=== PATIENT | male | born 1955 | race African-American/Black ===

== ENCOUNTER 2017-04-24 10:57 | Inpatient (IN) | payer MEDICARE, OTHER ==
[~2017-04-24] VITALS: Ht 172.7 cm; Wt 57.6 kg
--- NOTE | 2017-04-24 11:27 | NUR ---
report given to Praveen LOPEZ for annalise
[2017-04-24 11:35] VITALS: BP 100/63
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
[2017-04-24] MEDS ORDERED: IV NS 0.9% 1,000 ML IV PRN (14:15)
[2017-04-24] MEDS ORDERED: MAG HYDROX/AL HYDROX/SIMETH 30 ML UDC PO PRN (14:30)
[2017-04-24] MEDS ORDERED: Z GUARD REMEDY 2 OZ OINT TP PRN (14:30)
[2017-04-24] MEDS ORDERED: ACETAMINOPHEN 325 MG TABLET PO PRN (14:30)
[2017-04-24] MEDS ORDERED: ONDANSETRON HCL/PF 4 MG/2 ML VIAL IVP PRN (14:30)
[2017-04-24] MEDS ORDERED: HYDROCODONE/APAP 5/325MG 1 EACH TABLET PO PRN (14:30)
[2017-04-24] MEDS ORDERED: MAGNESIUM HYDROXIDE 30 ML UDC PO PRN (14:30)
[2017-04-24 16:00] VITALS: BP 92/63
--- NOTE | 2017-04-24 19:18 | NUR ---
MS RN closing notes All needs met and rendered. Kept patient clean and dry. Call light within reach. Endorsed to next shift RN to continue care.
--- NOTE | 2017-04-24 19:30 | NUR ---
MS RN OPENING NOTES: PATIENT IN BED, ASLEEP BUT EASILY AWAKENED TO NAME, AOX1. APPEARS COMBATIVE, INITIALLY UNWILLING TO BE ASSESSED. ON ROOM AIR, BREATHING EVEN AND UNLABORED. PROVIDED FOR COMFORT AND SAFETY. BED IN LOWEST AND LOCKED POSITION, SIDERAILS UPX2, BED ALARMS ON. WILL CONT TO MONITOR.
[2017-04-24 20:00] VITALS: BP 98/62
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
--- NOTE | 2017-04-25 06:51 | NUR ---
MS RN CLOSING NOTES: PATIENT IN BED, AOX1, ON ROOM AIR, BREATHING EVEN AND UNLABORED. APPEARS CALM AND IN NO DISTRESS. DENIES PAIN. PROVIDED FOR COMFORT AND SAFETY. MORNING CARE RENDERED. BED IN LOWEST AND LOCKED POSITION, SIDERAILS UP X3, BED ALARMS ON. WILL ENDORSE TO AM RN FOR LEN.
[2017-04-25 06:59] LABS: BASOPHILS % (AUTO) 0.6 % (0.0-2.0); EOSINOPHILS # (AUTO) 0.1 /CMM (0.0-0.7); EOSINOPHILS % (AUTO) 3.5 % (0.0-6.0); HEMATOCRIT 37 % (39-51); HEMOGLOBIN 12.2 g/dL (13.5-17.5); LYMPHOCYTES # (AUTO) 1.4 /CMM (0.8-4.8); LYMPHOCYTES % (AUTO) 35.9 % (20.0-44.0); MEAN CORPUSCULAR HEMOGLOBIN 29 PG (26.0-33.0); MEAN CORPUSCULAR HGB CONC 33 g/dl (31.0-36.0); MEAN CORPUSCULAR VOLUME 88 fL (80-96); MONOCYTES # (AUTO) 0.4 /CMM (0.1-1.30); MONOCYTES % (AUTO) 9.9 % (2.0-12.0); NEUTROPHILS # (AUTO) 1.9 /CMM (1.8-8.9); NEUTROPHILS % (AUTO) 50.1 % (43.0-81.0); PLATELET COUNT (AUTO) 154 /CMM (150-450); RDW COEFFICIENT OF VARIATION 15.3 (11.5-15.0); RED BLOOD CELL COUNT(AUTO) 4.17 MIL/uL (4.5-6.0); WHITE BLOOD COUNT (AUTO) 3.8 K/uL (4.3-11.0)
[2017-04-25 07:05] LABS: APPEARANCE,URINE CLEAR (CLEAR); BILIRUBIN,URINE NEGATIVE (NEGATIVE); BLOOD, URINE NEGATIVE Ery/uL (NEGATIVE); COLOR,URINE YELLOW (YELLOW); KETONES,URINE NEGATIVE (NEGATIVE); LEUKOCYTE ESTERASE ,URINE NEGATIVE (NEGATIVE); NITRITE, URINE NEGATIVE (NEGATIVE); PROTEIN,URINE NEGATIVE (NEGATIVE); UGLUCOSE NEGATIVE (NEGATIVE); UROBILINOGEN,URINE 0.2 EU/dL (0.2)
[2017-04-25 07:36] LABS: BILIRUBIN,TOTAL 0.3 mg/dL (0.2-1.0); CALCIUM, SERUM 9.6 mg/dL (8.5-10.1); CREATININE 0.7 mg/dL (0.6-1.3); MAGNESIUM 1.7 mg/dL (1.8-2.4); PHOSPHORUS 3.3 mg/dL (2.5-4.9); POTASSIUM 4.2 mmol/L (3.5-5.1); TOTAL PROTEIN, SERUM 6.8 g/dL (6.4-8.2)
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
[2017-04-25 08:00] VITALS: BP 99/59
[2017-04-25] MEDS ORDERED: IV D5W 1,000 ML IV ONE (10:00)
[2017-04-25] MEDS: Magnesium 1GM/D5W 100ML PREMIX 100 ML IV SCH ×2 (10:27→11:33)
[2017-04-25] MEDS: IV NS 0.9% 1,000 ML IV PRN (10:50)
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
[2017-04-25] MEDS ORDERED: HYDROGEL DRESSING 90 GM TUBE TP PRN (11:00)
--- NOTE | 2017-04-25 11:00 | NUR ---
PER MD ORDER RO CANCEL ORDER OF D5 AND PL[address] NEW ORDER FOR NS.
[2017-04-25] MEDS ORDERED: MENTHOL/CETYLPYRD (CEPACOL) 1 LOZ LOZENGE PO PRN (12:00)
[2017-04-25] MEDS ORDERED: POLYVINYL ALCOHOL 15 ML BOTTLE EACHEYE PRN (12:00)
[2017-04-25] MEDS: HYDROGEL DRESSING 90 GM TUBE TP SCH (12:47)
[2017-04-25] MEDS ORDERED: BISACODYL SUPP (10 MG) 10 MG/SUPP.RECT SUPP.RECT RC PRN (15:00)
[2017-04-25] MEDS ORDERED: NITROGLYCERIN 0.4 MG/TAB BOTTLE SL PRN (15:00)
[2017-04-25] MEDS ORDERED: LORAZEPAM 1 MG TABLET PO PRN (15:00)
--- NOTE | 2017-04-25 15:30 | NUR ---
MED RECON DONE. NOTIFIED MD MAYS. AWAITING APPROVAL.
[2017-04-25] MEDS ORDERED: BISA10SU8 RC (15:32)
[2017-04-25] MEDS ORDERED: THIA100T74 PO (15:32)
[2017-04-25] MEDS ORDERED: HALO5TAB PO (15:32)
[2017-04-25] MEDS ORDERED: MULT-1018 PO (15:32)
[2017-04-25] MEDS ORDERED: HALO2TAB PO (15:32)
[2017-04-25] MEDS ORDERED: NITR0.4T6 SL (15:32)
[2017-04-25] MEDS ORDERED: LORA1TAB82 PO (15:32)
[2017-04-25] MEDS ORDERED: OMEP20CA10 PO (15:32)
[2017-04-25] MEDS ORDERED: CHOL200026 PO (15:32)
[2017-04-25] MEDS ORDERED: VALS80TA2 PO (15:32)
[2017-04-25] MEDS ORDERED: DOCU-25 PO (15:32)
[2017-04-25 16:00] VITALS: BP 97/61
[2017-04-25] MEDS ORDERED: DOCUSATE SODIUM 100 MG CAPSULE PO SCH (17:00)
--- NOTE | 2017-04-25 18:40 | NUR ---
MS RN: CLOSING NOTE PT TOOK ALL MEDICATIONS ON TIME. NO ADVERSE REACTIONS NOTED. NO PAIN NOTED. A/OX1-2. ON MS. INCONTINENT. USES DIAPER AND URINAL. BLE WOUNDS. WOUND CARE DONE BY WOUND CARE NURSE. ON CHOPPED DIET. IV ON R HAND #22 RUNNING NS AT 75ML/HR. SITE CLEAR AND PATENT. NO N/V NOTED. MED RECOND DONE. AWAITING APPROVAL FROM MD MAYS. NOTIFIED. FALL PRECAUTIONS IN PLACE. RESTING COMFORTABLY IN BED. CALL LIGHT WITHIN REACH.
--- NOTE | 2017-04-25 19:40 | NUR ---
MS RN INITIAL NOTES RECEIVED PT IN BED, AWAKE, RESPONSIVE,ON ROOM AIR,NO SOB,NO APPARENT DISTRESS NOTED.NO S/SX OF PAIN OR DISCOMFORT NOTED.KEPT CLEAN AND COMFORTABLE,ATTENDED ALL NEEDS.CALL LIGHT WITHIN REACH. WILL CONTINUE TO MONITOR ACCORDINGLY.
[2017-04-25 20:00] VITALS: BP 110/62
--- NOTE | 2017-04-25 21:00 | NUR ---
MS RN NOTES DR CORMIER NOTIFIED REGARDING MED RECON WAS DONE AWAITING FOR APPROVAL
[2017-04-25 22:00] VITALS: BP 110/62
[2017-04-25] MEDS ORDERED: HALOPERIDOL 5 MG TABLET PO SCH (22:00)
[2017-04-26] MEDS: ZOLPIDEM TARTRATE 5 MG TABLET PO PRN (01:03)
--- NOTE | 2017-04-26 01:24 | NUR ---
MS RN NOTES PT COMPLAINED OF INSOMNIA, AMBIEN GIVEN ORDERED. WILL CONTINUE TO MONITOR
[2017-04-26] MEDS: IV NS 0.9% 1,000 ML IV PRN (02:30)
--- NOTE | 2017-04-26 06:24 | NUR ---
MS RN CLOSING NOTES PT IN BED, AWAKE,ON ROOM AIR, NO SOB,NO APPARENT DISTRESS NOTED. DENIES ANY PAIN OR DISCOMFORT AT THIS TIME.IV SITE INTACT, PATENT. KEPT CLEAN AND COMFORTABLE. ATTENDED ALL NEEDS.CALL LIGHT WITHIN REACH
--- NOTE | 2017-04-26 07:35 | NUR ---
MS RN: INITIAL NOTE RECEIVED PT A/OX1-2. MS. NO DISTRESS NOTED. NO PAIN NOTED. NO SOB NOTED. INCONTINENT. USES DIAPER AND URINAL. ON MECHANICAL SOFT DIET. R HAND #22 RUNNING NS AT 75ML/HR. SITE CLEAR AND PATENT. NO REDNESS OR BLEEDING NOTED. RESTING COMFORTABLY IN BED. CALL LIGHT WITHIN REACH.
[2017-04-26 08:00] VITALS: BP 115/80
[2017-04-26] MEDS: HYDROGEL DRESSING 90 GM TUBE TP SCH (08:02)
[2017-04-26] MEDS ORDERED: MULTIVIT, IRON, MIN NO. 8, FA 1 TAB PO SCH (09:00)
[2017-04-26] MEDS ORDERED: CHOLECALCIFEROL (VITAMIN D 3) 400 UNIT TABLET PO SCH (09:00)
[2017-04-26] MEDS ORDERED: HALOPERIDOL 1 MG TABLET PO SCH (09:00)
[2017-04-26] MEDS ORDERED: HYDROGEL DRESSING 90 GM TUBE TP SCH (09:00)
[2017-04-26] MEDS ORDERED: THIAMINE HCL 100 MG TABLET PO SCH (09:00)
[2017-04-26] MEDS ORDERED: VALSARTAN 80 MG TABLET PO SCH (09:00)
--- NOTE | 2017-04-26 18:40 | NUR ---
MS RN: CLOSING NOTE PT A/OX4. MED RECON PLACED. MD MAYS NOTIFIED. AWAITING ORDERS. A/OX1. CONFUSED AT TIMES. MS. INCONTINENT. UNCOOPERATIVE AT TIMES. BRED REST. TURNED AND REPOSITIONED Q 2HOURS. NO DISTRESS NOTED. NO SOB NOTED. NO PAIN NOTED. IV ON R HAND RUNNING NS AT 75ML/HR. REFUSED LABS. ALL RISKS DN BENEFITS EXPLAINED. PT SCREAMED AT RN AND FEEDLOT MANAGER. RE-ATTEMPTED DURING THE DAY. PT REFUSED. NO N/V NOTED. CONSUMED ORAL INTAKE. RESTING COMFORTABLY IN BED. CALL LIGHT WITHIN REACH.
--- NOTE | 2017-04-26 19:25 | NUR ---
MS RN OPENING NOTES RECEIVED PT IN BED,AWAKE,ON ROOM AIR,NO SOB,NO APPARENT DISTRESS NOTED. IV SITE RT HAND INTACT,PATENT,NO S/SX OF INFILTRATION NOTED.KEPT CLEAN AND COMFORTABLE,CALL LIGHT WITHIN REACH,BED IN LOWEST POSITION.WILL CONTINUE TO MONITOR ACCORDINGLY.
[2017-04-26 20:00] VITALS: BP 116/73
[2017-04-26 21:43] VITALS: BP 116/73
[2017-04-27] MEDS: ZOLPIDEM TARTRATE 5 MG TABLET PO PRN (00:08)
--- NOTE | 2017-04-27 00:13 | NUR ---
MS RN NOTES NOTED WITH EPISODE OF INSOMNIA,AMBIEN GIVEN ORDERED. WILL CONTINUE TO MONITOR
[2017-04-27] MEDS: IV NS 0.9% 1,000 ML IV PRN (05:22)
--- NOTE | 2017-04-27 06:41 | NUR ---
MS RN CLOSING NOTES PT IN BED ASLEEP,ON ROOM AIR,NO SOB NOTED.RESPIRATIONS,EVEN, UNLABORED.IV SITE PATENT,NO S/SX OF INFILTRATION NOTED. KEPT CLEAN AND COMFORTABLE,CALL LIGHT WITHIN REACH.WILL CONTINUE TO MONITOR ACCORDINGLY
--- NOTE | 2017-04-27 07:15 | NUR ---
RN OPEN NOTES RECEIVED REPORT FROM BRICKMASON NURSE. PATIENT IS IN BED WITH HIS EYES CLOSED, EASILY AROUSED TO CALLING HIS NAME. NO SIGNS AND SYMPTOMS OF DISTRESS. WILL CONTINUE TO MONITOR AND ASSESS PATIENT.
[2017-04-27 08:00] VITALS: BP 104/56
[2017-04-27] MEDS: HYDROGEL DRESSING 90 GM TUBE TP SCH (08:19)
[2017-04-27] MEDS: FOLIC ACID 1 MG TABLET PO SCH (08:20)
[2017-04-27] MEDS ORDERED: LORAZEPAM 1 MG TABLET PO PRN (09:00)
[2017-04-27] MEDS ORDERED: BISACODYL SUPP (10 MG) 10 MG/SUPP.RECT SUPP.RECT RC PRN (09:00)
[2017-04-27] MEDS ORDERED: NITROGLYCERIN 0.4 MG/TAB BOTTLE SL PRN (09:00)
[2017-04-27] MEDS: CHOLECALCIFEROL 1,000 UNIT TABLET (VIT D3) PO SCH (09:49)
[2017-04-27] MEDS: DOCUSATE SODIUM 100 MG CAPSULE PO SCH ×2 (09:49→17:00)
[2017-04-27] MEDS: VALSARTAN 80 MG TABLET PO SCH (09:49)
[2017-04-27] MEDS: HALOPERIDOL 1 MG TABLET PO SCH (09:49)
[2017-04-27] MEDS: THIAMINE HCL 100 MG TABLET PO SCH (09:49)
[2017-04-27 15:37] LABS: CALCIUM, SERUM 9.2 mg/dL (8.5-10.1); CREATININE 0.7 mg/dL (0.6-1.3); MAGNESIUM 1.8 mg/dL (1.8-2.4); PHOSPHORUS 3.2 mg/dL (2.5-4.9); POTASSIUM 4.1 mmol/L (3.5-5.1)
[2017-04-27 15:58] LABS: BASOPHILS % (AUTO) 0.3 % (0.0-2.0); EOSINOPHILS # (AUTO) 0.1 /CMM (0.0-0.7); EOSINOPHILS % (AUTO) 2.4 % (0.0-6.0); HEMATOCRIT 36 % (39-51); HEMOGLOBIN 11.6 g/dL (13.5-17.5); LYMPHOCYTES # (AUTO) 1.3 /CMM (0.8-4.8); MEAN CORPUSCULAR HEMOGLOBIN 28 PG (26.0-33.0); MEAN CORPUSCULAR HGB CONC 33 g/dl (31.0-36.0); MEAN CORPUSCULAR VOLUME 87 fL (80-96); MONOCYTES # (AUTO) 0.4 /CMM (0.1-1.30); MONOCYTES % (AUTO) 9.9 % (2.0-12.0); NEUTROPHILS # (AUTO) 2.1 /CMM (1.8-8.9); NEUTROPHILS % (AUTO) 54.4 % (43.0-81.0); PLATELET COUNT (AUTO) 135 /CMM (150-450); RDW COEFFICIENT OF VARIATION 15.8 (11.5-15.0)
[2017-04-27 16:00] VITALS: BP 124/73
[2017-04-27 17:33] LABS: WHITE BLOOD COUNT (AUTO) 4.5 K/uL (4.3-11.0)
--- NOTE | 2017-04-27 18:48 | NUR ---
RN CLOSING NOTES PATIENT IS IN BED. PATIENT IS ALERT AND ORIENTED TO NAME ONLY. PERIOD OF CONFUSIONS. UNABLE TO VERBALIZE UNDERSTANDING. BED IN LOW POSITION, LOCKED AND TWO SIDE RAILS ARE UP. CALL LIGHT WITHIN REACH. ALL NURSING CARE ANTICIPATED AND ATTENDED FOR. PATIENT TURNED AND REPOSITIONED Q2HR PER HOSPITAL PROTOCOL. PATIENT KEPT CLEAN AND DRY. WILL ENDORSE TO PARADI OPERATOR NURSE
[2017-04-27 20:00] VITALS: BP 108/64
[2017-04-27] MEDS ORDERED: HALOPERIDOL 5 MG TABLET PO SCH (22:00)
--- NOTE | 2017-04-28 07:11 | NUR ---
RN OPEN NOTES RECEIVED REPORT FROM RETAIL PROJECT MERCHANDISER NURSE. PATIENT IS IN BED. AWAKE, ALERT AND ORIENTED TO NAME ONLY. NO SIGNS AND SYMPTOMS OF DISTRESS. BED IN LOW POSITION, LOCKED AND TWO SIDE RAILS ARE UP. CALL LIGHT WITHIN REACH. WILL CONTINUE TO MONITOR AND ASSESS PATIENT THROUGHOUT MY SHIFT
[2017-04-28] MEDS ORDERED: PANTOPRAZOLE 40 MG TABLET.DR PO SCH (07:30)
[2017-04-28 08:00] VITALS: BP 122/77
[2017-04-28] MEDS: CHOLECALCIFEROL 1,000 UNIT TABLET (VIT D3) PO SCH (08:20)
[2017-04-28] MEDS: FOLIC ACID 1 MG TABLET PO SCH (08:20)
[2017-04-28] MEDS: DOCUSATE SODIUM 100 MG CAPSULE PO SCH ×2 (08:21→17:00)
[2017-04-28] MEDS: VALSARTAN 80 MG TABLET PO SCH (08:21)
[2017-04-28] MEDS: THIAMINE HCL 100 MG TABLET PO SCH (08:21)
[2017-04-28] MEDS: HALOPERIDOL 1 MG TABLET PO SCH (08:21)
[2017-04-28] MEDS: HYDROGEL DRESSING 90 GM TUBE TP SCH (08:24)
[2017-04-28] MEDS ORDERED: MULTIVITAMINS,THERAGRAN 1 UDTAB TABLET PO SCH (09:00)
[2017-04-28 16:00] VITALS: BP_SYST 117; BP_SYST 121; BP_DIAS 71; BP_DIAS 79
--- NOTE | 2017-04-28 17:15 | NUR ---
ASSOCIATE MEDICAL DIRECTOR NOTES PATIENT DISCHARGE ORDER RECEIVED AND CARRIED OUT. PATIENT IS LEAVING IN A STABLE CONDITION. NO SIGNS AND SYMPTOMS OF DISTRESS OR PAIN. PATIENT IS GOING BACK TO [facility]; REPORT GAVE TO JOHN YODER. PATIENT IS GOING TO ROOM NUMBER [id number]. DISCHARGE INSTRUCTIONS REPORTED TO SN[facility] RN. RN VERBALIZED UNDERSTANDING. ALL PERSONAL BELONGING WITH PATIENT AT TIME OF DISCHARGE. 2 RNs SIGNED BOTH BELONGING FORM AND INSTRUCTION FORM; FORMS PLACED IN THE CHART. PICTURES WERE TAKEN AND PLACED IN THE CHART. IV SITE REMOVED. ID BAND REMOVED. PATIENT PICKED UP BY AMBULANCE AND TWO GOLD PROSPECTOR. VITAL SIGNS ARE STABLE UPON DISCHARGE.
== END 2017-04-28 17:10 | DRG 917 ==
LOC: ER 10:57 → MED 12:11
PROVIDERS: ADMIT Internal Medicine; ATTEND Internal Medicine
DX: T59.811A Toxic effect of smoke, accidental (unintentional), initial encounter (principal); J96.01 Acute respiratory failure with hypoxia; G93.41 Metabolic encephalopathy; R53.2 Functional quadriplegia; B35.1 Tinea unguium; E53.8 Deficiency of other specified B group vitamins; F03.90 Unspecified dementia, unspecified severity, without behavioral disturbance, psychotic disturbance, mood disturbance, and anxiety; F29 Unspecified psychosis not due to a substance or known physiological condition; I10 Essential (primary) hypertension; S81.802A Unspecified open wound, left lower leg, initial encounter; S81.801A Unspecified open wound, right lower leg, initial encounter; X58.XXXA Exposure to other specified factors, initial encounter; Y93.9 Activity, unspecified; Y92.129 Unspecified place in nursing home as the place of occurrence of the external cause
CPT/HCPCS: 36415; 71010-TC; 80048-TC; 80053-TC; 80061-TC; 81000-TC; 82746; 83540-TC; 83735-TC; 84100-TC; 85025-TC; 87081-TC; 87086-TC; 92611-TC; A4606; A6248; J3475; J7030; J7070; Z7610